=== PATIENT | male | born 1975 | race Caucasian/White ===

== ENCOUNTER 2025-01-07 19:27 | Emergency (ER) | payer SELFPAY ==
[~2025-01-07 19:27] MED LIST: Iopamidol 370 76% 100 ML VIAL ONE
[2025-01-07 20:07] LABS: Hematocrit 46.4 % (42.0-52.0); Mean Corpuscular HGB CONC 34.5 g/dL (32.0-36.0); Mean Corpuscular Hemoglobin 32.1 pg (27.0-31.0); Mean Platelet Volume 8.9 fL (7.4-10.4); Platelet Count 293 10x3/uL (130-400); Red Blood Cell (RBC) Count 4.99 mill/uL (4.70-6.10)
[2025-01-07 20:10] LABS: Band 1 % (5-11); Eosinophils 2 % (0-10); Lymphocytes 30 % (21-51); MDiff Complete? YES; Monocytes 7 % (0-10); Neutrophil 60 % (42-75)
[2025-01-07 20:20] LABS: Bicarbonate (HCO3v) 23.6 mmol/L (22.0-28.0); Chloride 107 mmol/L (98-107); Hemoglobin - Calc 16.8 g/dL (14.0-18.0); Potassium 3.9 mmol/L (3.5-5.1); Sodium 143 mmol/L (138-145); T. Carbon Dioxide 24.7 mmol/L (22.0-28.0); vO2 Saturation-calc 99.7 % (60.0-85.0)
[2025-01-07 20:29] LABS: Troponin I Less than 0.010 ng/mL (< 0.028)
[2025-01-07 20:30] LABS: ALT (SGPT) 37 U/L (Less than 45); AST (SGOT) 25 U/L (11-34); Albumin 4.3 g/dL (3.1-4.5); Alkaline Phosphatase 73 U/L (40-110); Anion Gap 19 mmol/L (10-20); BUN (Urea Nitrogen) 9 mg/dL (8.9-20.6); Bilirubin, Total 0.2 mg/dL (0.3-1.2); Calc. Creatinine Clearance 0 mL/min (70-130); Calcium 9.3 mg/dL (7.8-10.44); Carbon Dioxide 17 mmol/L (22-29); Chloride 108 mmol/L (98-107); Estimated GFR 98; Globulin 3.2 g/dL (2.4-3.5); Glucose 95 mg/dL (70-105); Lipase 36 U/L (8-78); Magnesium 2.2 mg/dL (1.6-2.6); Protein, Total 7.5 g/dL (6.0-8.3); Sodium 140 mmol/L (136-145)
[2025-01-07] MEDS ORDERED: Ipratropium/Albuterol 3 ML NEB ONE (20:55)
[2025-01-07] MEDS ORDERED: methylPREDNISolone Sod Succ/PF 125 MG/2 ML VIAL ONE (23:28)
[2025-01-07] MEDS ORDERED: Albuterol 200 PUFF (6.7GM INHALER) ONE (23:28)
== END 2025-01-08 | disposition home or self-care (01) ==
LOC: MADERS 19:27
DX: J20.9 Acute bronchitis, unspecified (principal); J44.1 Chronic obstructive pulmonary disease with (acute) exacerbation; F17.210 Nicotine dependence, cigarettes, uncomplicated
CPT/HCPCS: 71045; 71260; 80053; 82330; 82435; 82803; 83605; 83690; 83735; 83880; 84132; 84295; 84484; 85014; 85025; 85379; 87428; 93005; 94760; 96374; J2919; J7620; Q9967